=== PATIENT | female | born 1975 | race Caucasian/White ===

== ENCOUNTER → 2017-05-13 | Day surgery (SDC) | payer MEDICARE, MEDICAID ==
[~2017-05-13] VITALS: Ht 152.4 cm; Wt 78.8 kg
[~2017-05-13] MED LIST: AMLODIPINE BESYL5 MG PO; BENADRYL25 MG PO; CPAP INH; DEXILANT60 MG PO; DICYCLOMINE HCL20 MG PO; DITROPAN5 MG PO; ELAVIL50 MG PO; EPIPEN0.3 MG IM; HUMIRA40 MG/0.1 SUB-Q; HYDROXYZINE HCL50 MG PO; KEFLEX500 MG PO; LASIX20 MG PO; LEVEMIR FL100 UNIT/1 SUB-Q; LEVOTHROID(SYN75 MCG PO; LYRICA 50MG CAP50 MG PO; MIRAPEX0.75 MG PO; NORVASC5 MG PO; NOVOLOG100 UNIT/M SUB-Q; OXYGEN M-15 INH; PHENERGAN25 M1 PO; PROAIR HFA8.5 GM INH; PROBIOTIC1 EAC1 PO; PYRIDIUM100 MG PO; RIZATRIPTAN5 MG PO; SYMBICORT 16010.2 GM INH; TESSALON PERLE100 MG PO; TOPROL XL100 MG PO; TYLENOL EXTRA500 MG PO; ZESTRIL40 MG PO
== END ==
LOC: GPOC 05-09 11:00 → GEND 08:48 → GPOC 11:00
PROC: 0DJD8ZZ Inspection of Lower Intestinal Tract, Via Natural or Artificial Opening Endoscopic (ICD-10-PCS; principal; 2017-05-13)
DX: K28.9 Gastrojejunal ulcer, unspecified as acute or chronic, without hemorrhage or perforation (principal); Z98.890 Other specified postprocedural states; Z87.19 Personal history of other diseases of the digestive system
CPT/HCPCS: J2001; J2250; J2405; J7030